=== PATIENT | male | born 1945 | race African-American/Black ===

== ENCOUNTER 2017-06-05 08:51 | Emergency (ER) | payer MEDICARE ==
[2017-06-05 09:24] LABS: #Basophils 0.1 thou/uL (0.0-0.2); #Eosinphils 0.2 thou/uL (0.0-0.7); #Lymphocytes 1.6 thou/uL (1.20-3.40); #Monocytes 0.5 thou/uL (0.11-0.59); #Neutrophils 4.6 thou/uL (1.40-6.50); %Basophils 0.8 % (0.0-1.0); %Eosinophils 3.3 % (0.0-10.0); %Lymphocytes 22.7 % (21.0-51.0); %Monocytes 7.6 % (0.0-10.0); Hematocrit 40.9 % (42.0-52.0); Mean Platelet Volume 9.3 fL (7.4-10.4); Red Blood Cell (RBC) Count 4.94 mill/uL (4.70-6.10)
[2017-06-05 09:46] LABS: ALT (SGPT) 11 U/L (8-55); AST (SGOT) 18 U/L (5-34); Alkaline Phosphatase 107 U/L (40-150); Anion Gap 13 mmol/L (10-20); BUN (Urea Nitrogen) 19 mg/dL (8.4-25.7); Bilirubin, Total 0.5 mg/dL (0.2-1.2); Calc. Creatinine Clearance 0 mL/min (70-130); Calcium 9.7 mg/dL (7.8-10.44); Carbon Dioxide 25 mmol/L (23-31); Chloride 104 mmol/L (98-107); Estimated GFR-MDRD 88; Globulin 3.2 g/dL (2.4-3.5)
[2017-06-05 09:47] LABS: Acetaminophen Less than 6.0 mcg/mL (10.0-30.0); Salicylate Less than 8.0 mg/dL (15.0-30.0)
[2017-06-05 11:48] LABS: Bilirubin Negative (Negative); Blood, Urine Negative (Negative); Glucose, Urine (Dipstick) Negative (Negative); Ketone, Urine Negative (Negative); Nitrite Negative (Negative); Protein, Urine (Dipstick) Negative (Neg-Trace)
[2017-06-05 11:55] LABS: Bacteria/HPF None Seen HPF (None Seen); Hyaline Casts/LPF 0-3 HYALINE CAST LPF (0-3 Hyaline); Squamous Epithelial 0-3 HPF (0-3); WBC/HPF 0-3 HPF (0-3)
[2017-06-05 12:00] LABS: Amphetamine Not Detected (NotDetected); Methadone Not Detected (NotDetected); Methamphetamine Not Detected (NotDetected)
== END 2017-06-05 14:23 | disposition home or self-care (01) ==
LOC: ERS 08:51
DX: F43.20 Adjustment disorder, unspecified (principal); G30.8 Other Alzheimer's disease; F02.80 Dementia in other diseases classified elsewhere, unspecified severity, without behavioral disturbance, psychotic disturbance, mood disturbance, and anxiety; I10 Essential (primary) hypertension
CPT/HCPCS: 36415; 80053; 80306; 80307; 81003; 81015; 85025; 99285

== ENCOUNTER 2017-09-19 14:38 | Emergency (ER) | payer MEDICARE ==
[2017-09-19 15:35] LABS: #Eosinphils 0.1 thou/uL (0.0-0.7); #Lymphocytes 1.7 thou/uL (1.20-3.40); #Monocytes 1.2 thou/uL (0.11-0.59); #Neutrophils 10.9 thou/uL (1.40-6.50); %Basophils 0.3 % (0.0-1.0); %Eosinophils 0.6 % (0.0-10.0); %Lymphocytes 12.4 % (21.0-51.0); %Monocytes 8.6 % (0.0-10.0); Hematocrit 39.8 % (42.0-52.0); Red Blood Cell (RBC) Count 4.67 mill/uL (4.70-6.10); White Blood Cell (WBC) Count 13.9 thou/uL (4.8-10.8)
[2017-09-19 15:57] LABS: ALT (SGPT) 9 U/L (8-55); AST (SGOT) 16 U/L (5-34); Acetaminophen Less than 6.0 mcg/mL (10.0-30.0); Alkaline Phosphatase 101 U/L (40-150); Anion Gap 15 mmol/L (10-20); BUN (Urea Nitrogen) 33 mg/dL (8.4-25.7); Bilirubin, Total 0.7 mg/dL (0.2-1.2); CK (CPK) 174 U/L (30-200); Calc. Creatinine Clearance 0 mL/min (70-130); Calcium 9.9 mg/dL (7.8-10.44); Carbon Dioxide 26 mmol/L (23-31); Chloride 105 mmol/L (98-107); Estimated GFR-MDRD 49; Globulin 3.2 g/dL (2.4-3.5); Protein, Total 7.1 g/dL (5.8-8.1); Salicylate Less than 8.0 mg/dL (15.0-30.0)
[2017-09-19] MEDS ORDERED: risperiDONE 1 MG TAB ONE (16:31)
== END 2017-09-19 20:02 | disposition home or self-care (01) ==
LOC: ERS 14:38
DX: G30.9 Alzheimer's disease, unspecified (principal); F02.81 Dementia in other diseases classified elsewhere, unspecified severity, with behavioral disturbance; Z79.899 Other long term (current) drug therapy
CPT/HCPCS: 36415; 80053; 80307; 82550; 84443; 85025; 99285

== ENCOUNTER 2018-01-08 07:15 | Emergency (ER) | payer MEDICARE ==
[2018-01-08] MEDS ORDERED: Lidocaine 1% w/Epinephrine 1:100K 20 ML VIAL ONE ×2 (07:39→07:42)
--- NOTE | 2018-01-08 09:08 | CT ---
CT BRAIN: HISTORY: Weakness. Patient with recent fall. Laceration to left eyebrow. FINDINGS: Noncontrast enhanced CT images of the brain are obtained. Brain and bone windows obtained. CT images of the brain demonstrate diffuse cortical atrophy. No evidence of acute intracranial christie s, hemorrhages, strokes, or contusions seen. No evidence of calvarial fracture is seen. IMPRESSION: Normal CT brain. POS: [facility]
--- NOTE | 2018-01-08 09:09 | CT ---
CT CERVICAL SPINE: HISTORY: Fall. Mental status change. FINDINGS: Axial images are obtained with coronal and sagittal reconstructions. CT images cervical spine demonstrate disk space height loss with anterior and posterior osteophytes a t C5-6, C6-7, and C7-T1. No evidence of acute cervical spine fracture is seen. The odontoid is unremarkable. Lateral masses of C1 and C2 are unremarkable. IMPRESSION: No evidence of acute cervical spine fracture is seen. POS: [facility]
== END 2018-01-08 09:34 | disposition home or self-care (01) ==
LOC: ERS 07:15
DX: S01.112A Laceration without foreign body of left eyelid and periocular area, initial encounter (principal); S16.1XXA Strain of muscle, fascia and tendon at neck level, initial encounter; I12.9 Hypertensive chronic kidney disease with stage 1 through stage 4 chronic kidney disease, or unspecified chronic kidney disease; N18.3 Chronic kidney disease, stage 3 (moderate); D64.9 Anemia, unspecified; Z79.899 Other long term (current) drug therapy; W19.XXXA Unspecified fall, initial encounter
CPT/HCPCS: 12011; 70450; 72125; J2001

== ENCOUNTER 2018-04-28 04:44 | Inpatient (IN) | payer MEDICARE ==
[2018-04-28 05:42] LABS: Bilirubin Small (Negative); Blood, Urine Negative (Negative); Clarity CLEAR (Clear); Glucose, Urine (Dipstick) Negative (Negative); Leukocyte Negative (Negative); Nitrite Negative (Negative); Protein, Urine (Dipstick) Trace mg/dL (Neg-Trace); Specific Gravity, Urine 1.025 (1.002-1.036); pH, Urine 5.5 (5.0-9.0)
[2018-04-28 05:50] LABS: #Eosinphils 0.1 thou/uL (0.0-0.7); #Lymphocytes 1.1 thou/uL (1.20-3.40); #Monocytes 0.9 thou/uL (0.11-0.59); #Neutrophils 9.6 thou/uL (1.40-6.50); %Basophils 0.3 % (0.0-1.0); %Eosinophils 0.6 % (0.0-10.0); %Lymphocytes 9.6 % (21.0-51.0); %Monocytes 7.2 % (0.0-10.0); %Neutrophils 82.3 % (42.0-75.0); Hemoglobin 11.4 g/dL (14.0-18.0); Mean Corpuscular HGB CONC 33.5 g/dL (32.0-36.0); Mean Corpuscular Volume 77.5 fL (78.0-98.0); Mean Platelet Volume 7.9 fL (7.4-10.4); Platelet Count 235 thou/uL (130-400); RBC Distribution Width 15.6 % (11.5-14.5); White Blood Cell (WBC) Count 11.7 thou/uL (4.8-10.8)
[2018-04-28] MEDS ORDERED: Acetaminophen 650 MG Suppository ONE (05:53)
[2018-04-28] MEDS ORDERED: Piperacillin/Tazobactam 3.375 GM VIAL ONE (05:53)
[2018-04-28 06:09] LABS: ALT (SGPT) 7 U/L (8-55); AST (SGOT) 13 U/L (5-34); Albumin 3.3 g/dL (3.4-4.8); Alkaline Phosphatase 101 U/L (40-150); Anion Gap 11 mmol/L (10-20); BUN (Urea Nitrogen) 18 mg/dL (8.4-25.7); Bilirubin, Total 0.8 mg/dL (0.2-1.2); Calc. Creatinine Clearance 0 mL/min (70-130); Carbon Dioxide 25 mmol/L (23-31); Chloride 107 mmol/L (98-107); Estimated GFR-MDRD 89; Globulin 2.9 g/dL (2.4-3.5); Glucose 121 mg/dL (83-110); Potassium 3.6 mmol/L (3.5-5.1); Protein, Total 6.2 g/dL (5.8-8.1); Sodium 139 mmol/L (136-145)
[2018-04-28] MEDS ORDERED: Acetaminophen 325 MG TAB PO PRN (07:31)
--- NOTE | 2018-04-28 08:17 | HP ---
DATE OF SERVICE: 04/28/2018. PRIMARY CARE PHYSICIAN: Dr. Henson CHIEF COMPLAINT: Fever. HISTORY OF PRESENT ILLNESS: This is a 72-year-old male with advanced dementia, hypertension, glaucoma, chronic kidney disease stage 3, chronic anemia who presents to the emergency room from [facility] for fever and blood noted in his diaper. No history is obtainable from the patient. In the emergency room nurses are noticing that he is scratching at his groin; however, no active bleeding. They did not visualize any gross blood in the diaper; however, sent for occult blood that was positive. His temperature here on arrival was 100.6. Blood cultures were drawn. The patient received Zosyn 3.375 grams, 650 mg of rectal Tylenol, 1 gram of IV vancomycin and Hospitalist called for admission. All information below based on chart review. ALLERGIES: None stated. MEDICATIONS: From a list provided by the [facility]. 1. Iron 325 mg b.i.d. 2. Norvasc 5 mg b.i.d. 3. Ranitidine 150 mg b.i.d. 4. Aricept 10 mg at bedtime. 5. Risperidone 0.25 mg at bedtime. 6. Toprol-XL 25 mg daily. 7. Latanoprost 1 drop each eye at bedtime. 8. Brimonidine 1 drop both eyes twice daily. 9. Namenda 10 mg b.i.d. PAST MEDICAL HISTORY: Based on chart review, 1. Hypertension. 2. Alzheimer disease, appears, severe. 3. Glaucoma. 4. Weakness. 5. Chronic kidney disease stage 3. 6. Aphasia. 7. Anemia. 8. Gastroesophageal reflux disease. PAST SURGICAL HISTORY: Left knee. SOCIAL HISTORY: The patient lives at [facility], his daughter is listed as his primary decision maker, Sarah Hernandez phone number [phone]. CODE STATUS: Listed as full. REVIEW OF SYSTEMS: Not obtainable. FAMILY HISTORY: Not obtainable. PHYSICAL EXAMINATION: VITAL SIGNS: Blood pressure 147/94, pulse 89, respirations 18, saturations 98% on room air, T-max was 101.8. GENERAL: The patient opens eyes. States his name, able to garbled when asked his name, does not respond to other questions. HEENT: Pupils are equal and round. No scleral icterus. Unable to have patient opened his mouth. NECK: Supple, nontender. LYMPHATICS: No palpable cervical or supraclavicular lymphadenopathy. LUNGS: Clear to auscultation bilateral. No audible wheezing, rhonchi or rales. HEART: Normal S1, S2, regular rate and rhythm, no audible murmurs. ABDOMEN: Soft with present bowel sounds. EXTREMITIES: No clubbing, cyanosis, or edema. SKIN: No visible rashes. He does have some dried bright red blood on his feet. PSYCH: Pt only voices name, unable to adequately assess. LABORATORY DATA: Reviewed today. 1. Urinalysis shows small bilirubin 1.025, otherwise negative. 2. Renal panel 139, 3.6, 107, 25 18, 1.01 121. 3. LFTs are normal. Lactic acid 1.3. 4. CBC: 11.7, 11.4, 34.1, 235 with 82% neutrophils. Chest x-ray by my read shows no acute process, awaiting formal radiology report. CT of the brain by my read, no acute process, awaiting formal report. IMPRESSION: 1. Sepsis, however, with no identified source in a patient at a half-way facility. 2. Reported bloody stool, unknown etiology. 3. Alzheimer dementia, appears advanced in nature. 4. Chronic kidney disease stage 3, stable. 5. Anemia, mild, stable. 6. Gastroesophageal reflux disease. 7. Weakness and aphasia. PLAN: 1. Admission to the hospital. 2. Monitor cultures and continue the Zosyn and vancomycin. 3. Continuing his usual medications with hold parameters on the Norvasc and Toprol XL. 4. IV fluid hydration. 5. We will monitor his white blood cell count and his renal function. Also monitor for bleeding and check hemoglobin, may need GI consult. 6. Diet: As tolerated. 7. Consult Palliative Care consult for assistance with communicating with the patient's daughter, and addressing code status as well for this hospitalization as well as for the future. 8. Deep venous thrombosis prophylaxis with Lovenox. 9. Gastrointestinal prophylaxis not indicated. 10. Code status is full per chart review. 11. Surrogate decision maker is listed as the patient's daughter. 12. The patient is at high risk given age, comorbidities, and current presentation. [facility]
[2018-04-28] MEDS ORDERED: Ondansetron HCl/PF 4 MG/2 ML Vial IVP PRN (08:43)
[2018-04-28] MEDS ORDERED: Ondansetron ODT 4 MG TAB SL PRN (08:43)
[2018-04-28] MEDS: NS 0.9% w/ 20 MEQ KCL 1,000 ML/1,000 ML BAG IV SCH ×2 (09:18→23:07)
[2018-04-28] MEDS: Amlodipine 5 MG TAB PO SCH ×2 (09:19→20:42)
[2018-04-28] MEDS: Famotidine 20 MG TAB PO SCH ×2 (09:19→20:42)
[2018-04-28] MEDS: Enoxaparin Sodium 30 MG/0.3 ML SYRINGE SC SCH (09:31)
--- NOTE | 2018-04-28 09:53 | CT ---
PRELIMINARY REPORT/[facility]/EMERGENTY AFTER-HOURS PROCEDURE CT Head Without Intravenous Contrast EXAM DATE/TIME: 04/28/2018 5:58 AM CLINICAL HISTORY: 72 years old, male; Signs and symptoms; Altered mental status/memory loss; Confusion or disorientatio n; Patient HX: Er 5; Ams/confusion; PT presents via ems, from in, for blood found in brief. PT arrive d to er with fever and noticed blood on hand and around a skin tear on scrotum. TECHNIQUE: Axial computed tomography images of the head/brain without intravenous contrast. COMPARISON: No relevant prior studies available. FINDINGS: Brain: No acute intracerebral abnormality or injury. Moderate frontotemporal and frontoparietal cereb ral atrophy. Ventricles: Normal. No ventriculomegaly. Bones/joints: Normal. No acute fracture. Sinuses: Normal as visualized. No acute sinusitis. Mastoid air cells: Normal as visualized. No mastoid effusion. Soft tissues: Normal. IMPRESSION: 1. No acute intracerebral abnormality or injury. 2. Moderate frontotemporal and frontoparietal cerebral atrophy. Thank you for allowing us to participate in the care of your patient. Dictated and Authenticated by: Dieudonne Pisano MD 04/28/2018 7:27 AM Central Time ([place] & [place]) HEAD CT WITHOUT CONTRAST: HISTORY: Altered mental status. COMPARISON: 01/08/2018 FINDINGS: This report is in agreement with the preliminary report by [facility]. No acute intracranial process. There is frontotemporal and frontoparietal atrophy, similar to the pr evious examination. POS: [facility]
--- NOTE | 2018-04-28 10:15 | RAD ---
RADIOGRAPH CHEST 1 VIEW: Supine HISTORY: 72-year-old male with fever. FINDINGS: There is no air space density or pulmonary edema. The lateral costophrenic angles are sharp. Supine positioning makes this study insensitive for pneumothorax detection. Ectasia of thoracic aorta. No ca rdiomegaly. IMPRESSION: 1. No acute cardiopulmonary findings. 2. Ectasia of thoracic aorta. maura [] POS: [facility]
[2018-04-28 11:04] VITALS: BMI 21.3
[2018-04-28] MEDS: Piperacillin/Tazobactam 3.375 GM in Sodium Chloride 0.9% 100 ML IVPB SCH ×2 (12:15→17:12)
[2018-04-28] MEDS ORDERED: Prevnar 13-Val Conj/PF 0.5 ML SYRINGE IM ONE (13:30)
[2018-04-28] MEDS: Brimonidine Tartrate 0.2% Ophth Soln 5 ml Bottle R EYE SCH ×2 (13:59→20:55)
[2018-04-28] MEDS: Brimonidine Tartrate 0.2% Ophth Soln 5 ml Bottle L EYE SCH ×2 (13:59→20:55)
--- NOTE | 2018-04-28 18:14 | PDOC.EVN ---
Event Note - Event Note Event Note: Rn reports only changing brief once today. Pt evaluated by speech and cleared for regular diet - will order this. Discussed with nurse continuing the IVF, adding a small bolus, and encouraging PO intake tonight.
[2018-04-28] MEDS ORDERED: Sodium Chloride 0.9% 500 ML IV SCH (18:15)
[2018-04-28] MEDS: Vancomycin HCl 1 GM in Premix Bag 1 BAG IVPB SCH (18:33)
[2018-04-28] MEDS: risperiDONE 0.25 MG TAB PO SCH (20:42)
[2018-04-28] MEDS: Donepezil HCl 10 MG TAB PO SCH (20:42)
[2018-04-28] MEDS: Latanoprost 0.005% Ophth Soln 2.5 ml Bottle EA EYE SCH (21:01)
[2018-04-29] MEDS: Piperacillin/Tazobactam 3.375 GM in Sodium Chloride 0.9% 100 ML IVPB SCH ×4 (00:40→18:36)
[2018-04-29] MEDS: NS 0.9% w/ 20 MEQ KCL 1,000 ML/1,000 ML BAG IV SCH (04:09)
[2018-04-29 04:55] LABS: #Eosinphils 0.5 thou/uL (0.0-0.7); #Lymphocytes 1.8 thou/uL (1.20-3.40); #Monocytes 0.7 thou/uL (0.11-0.59); #Neutrophils 4.6 thou/uL (1.40-6.50); %Basophils 0.6 % (0.0-1.0); %Eosinophils 6.4 % (0.0-10.0); %Monocytes 9.1 % (0.0-10.0); %Neutrophils 59.9 % (42.0-75.0); Hemoglobin 9.3 g/dL (14.0-18.0); Mean Corpuscular HGB CONC 33.5 g/dL (32.0-36.0); Mean Corpuscular Hemoglobin 26.4 pg (27.0-31.0); Mean Corpuscular Volume 78.8 fL (78.0-98.0); Mean Platelet Volume 7.7 fL (7.4-10.4); Platelet Count 202 thou/uL (130-400); RBC Distribution Width 15.3 % (11.5-14.5); Red Blood Cell (RBC) Count 3.52 mill/uL (4.70-6.10); White Blood Cell (WBC) Count 7.7 thou/uL (4.8-10.8)
[2018-04-29 05:16] LABS: Anion Gap 11 mmol/L (10-20); BUN (Urea Nitrogen) 18 mg/dL (8.4-25.7); Calc. Creatinine Clearance 60 mL/min (70-130); Calcium 8.4 mg/dL (7.8-10.44); Carbon Dioxide 23 mmol/L (23-31); Chloride 109 mmol/L (98-107); Estimated GFR-MDRD 77; Glucose 96 mg/dL (83-110); Potassium 3.8 mmol/L (3.5-5.1); Sodium 139 mmol/L (136-145)
[2018-04-29] MEDS: Vancomycin HCl 1 GM in Premix Bag 1 BAG IVPB SCH ×4 (06:40→20:35)
[2018-04-29] MEDS: Amlodipine 5 MG TAB PO SCH ×2 (09:24→20:51)
[2018-04-29] MEDS: Enoxaparin Sodium 30 MG/0.3 ML SYRINGE SC SCH (09:25)
[2018-04-29] MEDS: Famotidine 20 MG TAB PO SCH (09:25)
[2018-04-29] MEDS: Brimonidine Tartrate 0.2% Ophth Soln 5 ml Bottle L EYE SCH ×2 (09:25→21:06)
[2018-04-29] MEDS: Brimonidine Tartrate 0.2% Ophth Soln 5 ml Bottle R EYE SCH ×2 (09:25→21:06)
[2018-04-29 12:43] LABS: Hemoglobin 8.9 g/dL (14.0-18.0)
--- NOTE | 2018-04-29 15:03 | PDOC.PN ---
- Subjective Encounter Start Date: 04/29/18 (f/u fever) Encounter Start Time: 15:01 Subjective: pt talkative, without complaints, eating without difficulty and -: voiding in bedside commode. Dark brown stool noted just -: now - no bright red blood. - Objective Resuscitation Status: Resuscitation Status FULL:Full Resuscitation Vital Signs & Weight: Vital Signs (12 hours) Temp Pulse Resp BP BP BP Pulse Ox 04/29/18 11:57 98.3 F 68 16 125/67 98 04/29/18 09:24 74 131/83 04/29/18 08:00 97.8 F 74 18 131/83 96 04/29/18 04:50 97.9 F 63 16 138/89 98 I&O: 04/28/18 04/29/18 04/30/18 06:59 06:59 06:59 Intake Total 1700 Balance 1700 Result Diagrams: 04/29/18 12:19 04/29/18 04:30 Phys Exam - Physical Examination Constitutional: NAD oriented to person only Respiratory: no wheezing, no rales, no rhonchi Cardiovascular: RRR, no significant murmur Gastrointestinal: soft, non-tender, no distention, positive bowel sounds Musculoskeletal: no edema Neurological: non-focal, moves all 4 limbs Deviation from normal: oriented to person only, Skin: no rash Dx/Plan (1) Sepsis Code(s): A41.9 - SEPSIS, UNSPECIFIED ORGANISM Status: Acute Qualifiers: Sepsis type: sepsis due to unspecified organism Qualified Code(s): A41.9 - Sepsis, unspecified organism (2) Alzheimer's dementia Code(s): G30.9 - ALZHEIMER'S DISEASE, UNSPECIFIED; F02.80 - DEMENTIA IN OTH DISEASES CLASSD ELSWHR W/O BEHAVRL DISTURB Status: Chronic Qualifiers: Alzheimer's disease onset: unspecified onset (3) CKD (chronic kidney disease) Code(s): N18.9 - CHRONIC KIDNEY DISEASE, UNSPECIFIED Status: Chronic Qualifiers: Chronic kidney disease stage: stage 3 (moderate) Qualified Code(s): N18.3 - Chronic kidney disease, stage 3 (moderate) (4) Anemia Code(s): D64.9 - ANEMIA, UNSPECIFIED Status: Chronic Qualifiers: Anemia type: unspecified type Qualified Code(s): D64.9 - Anemia, unspecified (5) Blood in stool Code(s): K92.1 - MELENA Status: Acute (6) GERD (gastroesophageal reflux disease) Code(s): K21.9 - GASTRO-ESOPHAGEAL REFLUX DISEASE WITHOUT ESOPHAGITIS Status: Chronic Qualifiers: Esophagitis presence: esophagitis presence not specified Qualified Code(s) : K21.9 - Gastro-esophageal reflux disease without esophagitis (7) Weakness Code(s): R53.1 - WEAKNESS Status: Acute - Plan * Sepsis - no focal source of infection - continue zosyn and vancomycin until cultures are 48-72 hours. No fevers noted since admission * Blood in stool - per detention - no gross blood visualized here. Given the decline in hemoglobin this morning, will consult GI for evaluation. Of note , pt did receive one dose of lovenox for dvt prophylaxis this morning - this has been stopped. Recheck hemoglobin in 4 hours, has a type and screen - at this time there is no indication for transfusion. * BP well controlled on home meds * dementia - oriented to person today and talking - improved. * * dvt prophy - scd's * gi prophy - on famotidine at detention - continue here * code status full per detention record. * * reviewed plan of care with RN this morning.
[2018-04-29 19:04] LABS: #Basophils 0.1 thou/uL (0.0-0.2); #Eosinphils 0.6 thou/uL (0.0-0.7); #Lymphocytes 1.9 thou/uL (1.20-3.40); #Monocytes 0.7 thou/uL (0.11-0.59); #Neutrophils 5.1 thou/uL (1.40-6.50); %Basophils 0.7 % (0.0-1.0); %Eosinophils 6.9 % (0.0-10.0); %Lymphocytes 22.6 % (21.0-51.0); %Monocytes 8.1 % (0.0-10.0); %Neutrophils 61.7 % (42.0-75.0); Mean Corpuscular HGB CONC 31.9 g/dL (32.0-36.0); Mean Corpuscular Hemoglobin 25.7 pg (27.0-31.0); Mean Corpuscular Volume 80.4 fL (78.0-98.0); Mean Platelet Volume 8.1 fL (7.4-10.4); Platelet Count 238 thou/uL (130-400); RBC Distribution Width 15.4 % (11.5-14.5); Red Blood Cell (RBC) Count 4.29 mill/uL (4.70-6.10); White Blood Cell (WBC) Count 8.3 thou/uL (4.8-10.8)
[2018-04-29] MEDS: Latanoprost 0.005% Ophth Soln 2.5 ml Bottle EA EYE SCH (20:39)
[2018-04-29] MEDS: risperiDONE 0.25 MG TAB PO SCH (20:51)
[2018-04-29] MEDS: Donepezil HCl 10 MG TAB PO SCH (20:51)
--- NOTE | 2018-04-29 21:42 | CON ---
DATE OF CONSULTATION: 04/29/2018 REASON FOR CONSULTATION: Anemia. CONSULTING PHYSICIAN: Rebeca Fitzgerald MD. HISTORY OF PRESENT ILLNESS: The patient is a 72-year-old male with past medical history of hypertens ion, glaucoma, chronic kidney disease stage 3, aphasia, GERD, Alzheimer disease, and anemia, who init ially presented to the hospital for fever and hematochezia. All the information obtained was through the chart review and discussion with both nursing staff and the hospitalist. Apparently, the patien t was transferred from [facility] with complaints of fever of unknown origin as well as t he spotting of bright red blood per rectum that was noted in his diaper prior to admission. Last nig ht, the patient had a darker colored stool of unknown consistency, which then translated into more da rk brown semi-solid stool today. No gross blood/hematochezia, overt melena, or hematemesis has been visualized during this hospitalization. He is currently receiving IV fluids as well as IV antibiotic s for treatment of fever of unknown origin. Due to his severe Alzheimer disease, the patient is unab le to contribute a meaningful response to his current clinical status. REVIEW OF SYSTEMS: Could not be obtained due to the severe Alzheimer dementia. PAST MEDICAL HISTORY: As per HPI. PAST SURGICAL HISTORY: Left knee surgery. FAMILY HISTORY: Could not obtain due to lack of family present and the patient's severe Alzheimer di sease. SOCIAL HISTORY: Currently lives in a [facility] with no stated alcohol, tobacco, or illicit drug u se per chart. OUTPATIENT MEDICATIONS: Reviewed. ALLERGIES: No known drug allergies. PHYSICAL EXAMINATION: VITAL SIGNS: Temperature 98.3, pulse 68, blood pressure 125/67, respiratory rate 16, satting 98% on room air. GENERAL: The patient is lying in bed, in no acute distress, alert and oriented x1. Displays signifi cant tangential thought processes. NECK: Supple. No JVD noted. CARDIOVASCULAR: Regular rate and rhythm with no discernible murmurs, gallops, or rubs. RESPIRATORY: Clear to auscultation bilaterally with no discernible wheezes or rales. ABDOMEN: Normoactive bowel sounds, soft, nontender, nondistended. EXTREMITIES: No cyanosis, clubbing, or edema. LABORATORY DATA: CBC with a white blood cell count of 7.7, hemoglobin 8.9, hematocrit 26.9, platelet s 202. Chemistry with a sodium of 139, potassium 3.8, chloride 109, CO2 of 23, BUN 18, creatinine 1. 13, glucose 96, AST 13, ALT 7, alkaline phosphatase 101, total bilirubin 0.8, albumin 3.3. IMAGING DATA: No current GI imaging is available for review. ASSESSMENT AND PLAN: The patient is a 72-year-old -[place] male with past medical history of hypertension, glaucoma, chronic kidney disease stage 3, aphasia, gastroesophageal reflux disease, Al zheimer disease, and chronic anemia presenting with worsening of his anemia. Anemia: The patient was initially admitted to the hospital for workup related to fever of unknown or igin; however, during interview with the nursing staff at the [facility], they did mention the poss ibility of small amounts of hematochezia per the patient's diaper. During this admission, he has bee n noted to have a darker-colored stool last night as well as dark brown semi-solid stool today, but n o complaints of overt hematochezia, melena, or hematemesis. Upon review of his labs, his H&H dropped approximately 2 units of blood within a 24-hour time period, again with no evidence of overt GI blee ding; however, he does have a low MCV and a high RDW, which is concerning for possible iron deficienc y anemia. At this time, I would like to further characterize his anemia by drawing iron indices on h im to determine whether or not this is an iron deficiency anemia versus anemia of chronic/renal disea se that may be contributing to the current clinical picture. Also, within the differential is hemodi lutional anemia from administration of IV fluids as well as IV antibiotics, which is evident by his d ecrease in white blood cell count, hemoglobin, hematocrit and platelets. However, differential could still include esophagitis, gastritis, peptic ulcer disease, GI malignancy, hemorrhoidal bleeding, di verticular bleeding (much less likely), colonic neoplasm, and anemia of non-GI origin. RECOMMENDATIONS: 1. We will obtain iron indices to further characterize his anemia. 2. We would continue to trend H&H and transfuse as necessary to maintain an H&H of 04/15. 3. We would continue to monitor for signs of active gastrointestinal bleeding. 4. If the patient does indeed have an iron deficiency anemia or indices indicative thereof, would re commend both an upper and lower endoscopy for evaluation of possible bleeding source. 5. If the patient's H&H continues to decrease, given the observed darker-colored stools, an EGD may be warranted as well, but will hold off on that until iron indices are back. We will continue to follow. Please call with any questions.
[2018-04-30 00:49] LABS: #Basophils 0.1 thou/uL (0.0-0.2); #Eosinphils 0.6 thou/uL (0.0-0.7); #Lymphocytes 1.3 thou/uL (1.20-3.40); #Monocytes 0.8 thou/uL (0.11-0.59); #Neutrophils 4.5 thou/uL (1.40-6.50); %Basophils 0.9 % (0.0-1.0); %Eosinophils 8.7 % (0.0-10.0); %Lymphocytes 18.2 % (21.0-51.0); %Monocytes 10.4 % (0.0-10.0); %Neutrophils 61.7 % (42.0-75.0); Hemoglobin 9.2 g/dL (14.0-18.0); Mean Corpuscular HGB CONC 34.1 g/dL (32.0-36.0); Mean Corpuscular Hemoglobin 26.8 pg (27.0-31.0); Mean Corpuscular Volume 78.8 fL (78.0-98.0); Mean Platelet Volume 7.9 fL (7.4-10.4); Platelet Count 233 thou/uL (130-400); RBC Distribution Width 15.3 % (11.5-14.5); Red Blood Cell (RBC) Count 3.43 mill/uL (4.70-6.10); White Blood Cell (WBC) Count 7.3 thou/uL (4.8-10.8)
[2018-04-30] MEDS: Piperacillin/Tazobactam 3.375 GM in Sodium Chloride 0.9% 100 ML IVPB SCH ×4 (01:01→17:29)
[2018-04-30 04:54] LABS: #Eosinphils 0.7 thou/uL (0.0-0.7); #Lymphocytes 1.9 thou/uL (1.20-3.40); #Monocytes 0.8 thou/uL (0.11-0.59); #Neutrophils 4.9 thou/uL (1.40-6.50); %Basophils 0.4 % (0.0-1.0); %Eosinophils 8.5 % (0.0-10.0); %Lymphocytes 22.7 % (21.0-51.0); %Monocytes 9.7 % (0.0-10.0); %Neutrophils 58.6 % (42.0-75.0); Hemoglobin 10.4 g/dL (14.0-18.0); Mean Corpuscular HGB CONC 33.4 g/dL (32.0-36.0); Mean Corpuscular Hemoglobin 26.3 pg (27.0-31.0); Mean Corpuscular Volume 78.6 fL (78.0-98.0); Mean Platelet Volume 7.7 fL (7.4-10.4); Platelet Count 254 thou/uL (130-400); RBC Distribution Width 15.3 % (11.5-14.5); Red Blood Cell (RBC) Count 3.95 mill/uL (4.70-6.10); White Blood Cell (WBC) Count 8.4 thou/uL (4.8-10.8)
[2018-04-30 04:55] LABS: Reticulocyte Count 2.1 % (0.5-1.5)
[2018-04-30 05:25] LABS: Anion Gap 11 mmol/L (10-20); BUN (Urea Nitrogen) 10 mg/dL (8.4-25.7); Calc. Creatinine Clearance 66 mL/min (70-130); Calcium 9.1 mg/dL (7.8-10.44); Carbon Dioxide 25 mmol/L (23-31); Chloride 107 mmol/L (98-107); Estimated GFR-MDRD 86; Glucose 97 mg/dL (83-110); Iron 16 ug/dL (65-175); Iron Binding Capacity, Total 205 mcg/dL (261-462); Potassium 3.8 mmol/L (3.5-5.1); Sodium 139 mmol/L (136-145)
[2018-04-30 05:28] LABS: Iron 16 ug/dL (65-175); Iron Binding Capacity, Total 203 mcg/dL (261-462)
[2018-04-30] MEDS: Brimonidine Tartrate 0.2% Ophth Soln 5 ml Bottle L EYE SCH ×2 (07:55→21:15)
[2018-04-30] MEDS: Amlodipine 5 MG TAB PO SCH ×2 (07:56→21:14)
[2018-04-30] MEDS: Vancomycin HCl 1 GM in Premix Bag 1 BAG IVPB SCH (07:57)
[2018-04-30] MEDS: Latanoprost 0.005% Ophth Soln 2.5 ml Bottle EA EYE SCH ×2 (07:58→21:19)
[2018-04-30] MEDS: Brimonidine Tartrate 0.2% Ophth Soln 5 ml Bottle R EYE SCH ×2 (09:00→21:15)
--- NOTE | 2018-04-30 13:57 | PRG ---
DATE OF SERVICE: 04/30/2018 REASON FOR CONSULTATION: Anemia. SUBJECTIVE: Per nursing staff, there were no acute events or problems overnight. The patient did no t have any episodes of hematemesis, melena or hematochezia. He has had approximately 2 bowel movemen ts during his inpatient stay that have been semi-solid in nature, but no observed bleeding. Upon dipesh bill with the patient today, he continues to be tangential with thought process and could not contrib [place] meaningful responses to the conversation. OBJECTIVE: VITAL SIGNS: Temperature 98.6, pulse 81, blood pressure 154/90, respiratory rate 16, satting 98% on room air. GENERAL: The patient was lying in bed in no acute distress, alert and oriented x1. CARDIOVASCULAR: Regular rate and rhythm. RESPIRATORY: Clear to auscultation bilaterally. ABDOMEN: Normoactive bowel sounds, soft, nontender, nondistended. EXTREMITIES: No cyanosis, clubbing or edema. LABORATORY DATA: CBC with a white blood cell count of 8.4, hemoglobin 10.4, hematocrit 31, platelets 254. Chemistry with sodium of 139, potassium 3.8, chloride 107, CO2 25, BUN 10, creatinine 1.03, gl ucose 97, iron 16, ferritin 103, TIBC 203. Reticulocyte count 2.1%. IMAGING DATA: No current GI imaging is available for review. ASSESSMENT AND PLAN: The patient is a 72-year-old -[place] male with past medical history of hypertension, glaucoma, chronic kidney disease stage 3, aphasia, gastroesophageal reflux disease, Al zheimer's disease, and chronic anemia presenting with worsening of his anemia. ANEMIA: The patient was initially admitted to the hospital for workup related to fever of unknown or igin, but was seen to have mild anemia on admission. During the course of his admission, his hemoglo bin and hematocrit dropped precipitously approximately 2 units of blood with 24-hour time period with out any evidence of overt gastrointestinal bleeding. Per nursing staff, he has not had any episodes of hematemesis, melena or hematochezia that might contributed to this precipitous drop; however, repe at of his hemoglobin and hematocrit this morning shows a significant increase in his hemoglobin and h ematocrit almost back to baseline, raising the question to whether or not he had this sudden decrease in his blood to begin with. Further evaluation with iron indices and CBC indices show a low MCV, hi gh RDW, low iron, normal ferritin and a low TIBC more consistent with anemia of chronic disease/renal disease. At this time given the patient's advanced dementia and lack of evidence of either acute or chronic gastrointestinal bleeding, I would hold off on any endoscopic management at this time. RECOMMENDATIONS: 1. We would continue to trend hemoglobin and hematocrit and transfuse as necessary to maintain hemog lobin and hematocrit of 7/21. 2. We would continue to monitor clinically for signs of active gastrointestinal bleeding. 3. If the patient does have continued decrease in his hemoglobin and hematocrit or has stooling amadou marion consistent more with melena, I would consider an upper endoscopy for further evaluation. We will continue to follow. Please call with any questions.
--- NOTE | 2018-04-30 14:02 | PDOC.PN ---
- Subjective Encounter Start Date: 04/30/18 (f/u fever) Encounter Start Time: 14:01 Subjective: No fevers in the hospital, no overt blood in the stool. -: Pt voiding without difficulty- is up and wobbly - currently sitting with -: the staff at the nurses station - Objective Resuscitation Status: Resuscitation Status FULL:Full Resuscitation Vital Signs & Weight: Vital Signs (12 hours) Temp Pulse Resp BP BP Pulse Ox 04/30/18 11:29 98.6 F 81 16 154/90 H 98 04/30/18 08:00 98.0 F 97 18 97 04/30/18 07:56 97 148/98 H 04/30/18 07:53 98.0 F 97 18 148/98 H 94 L 04/30/18 04:00 98.0 F 70 16 168/91 H 98 I&O: 04/29/18 04/30/18 05/01/18 06:59 06:59 06:59 Intake Total 1700 660 Balance 1700 660 Result Diagrams: 04/30/18 04:33 04/30/18 04:33 Additional Labs: Accuchecks 04/29/18 16:55 POC Glucose 93 Phys Exam - Physical Examination Constitutional: NAD oriented to person only Respiratory: no wheezing, no rales, no rhonchi Cardiovascular: RRR, no significant murmur Gastrointestinal: soft, non-tender, no distention, positive bowel sounds Musculoskeletal: no edema Neurological: non-focal Psychiatric: normal affect Skin: no rash Dx/Plan (1) Sepsis Code(s): A41.9 - SEPSIS, UNSPECIFIED ORGANISM Status: Acute Qualifiers: Sepsis type: sepsis due to unspecified organism Qualified Code(s): A41.9 - Sepsis, unspecified organism (2) Alzheimer's dementia Code(s): G30.9 - ALZHEIMER'S DISEASE, UNSPECIFIED; F02.80 - DEMENTIA IN OTH DISEASES CLASSD ELSWHR W/O BEHAVRL DISTURB Status: Chronic Qualifiers: Alzheimer's disease onset: unspecified onset (3) CKD (chronic kidney disease) Code(s): N18.9 - CHRONIC KIDNEY DISEASE, UNSPECIFIED Status: Chronic Qualifiers: Chronic kidney disease stage: stage 3 (moderate) Qualified Code(s): N18.3 - Chronic kidney disease, stage 3 (moderate) (4) Anemia Code(s): D64.9 - ANEMIA, UNSPECIFIED Status: Chronic Qualifiers: Anemia type: unspecified type Qualified Code(s): D64.9 - Anemia, unspecified (5) Blood in stool Code(s): K92.1 - MELENA Status: Acute (6) GERD (gastroesophageal reflux disease) Code(s): K21.9 - GASTRO-ESOPHAGEAL REFLUX DISEASE WITHOUT ESOPHAGITIS Status: Chronic Qualifiers: Esophagitis presence: esophagitis presence not specified Qualified Code(s) : K21.9 - Gastro-esophageal reflux disease without esophagitis (7) Weakness Code(s): R53.1 - WEAKNESS Status: Acute - Plan * Sepsis - cultures negative, will d/c vancomycin and zosyn as no fevers here and pt overall doing well. Recheck cx tomorrow. * * Blood in stool - decline in hemoglobin c/w dilution, no overt bleeding identified. Appreciate GI evaluation, iron studies completed and normal ferritin, low iron c/w anemia of chronic disease. No indication for endoscopy at this time. Will recheck cbc in am. * * ckd stable * * BP controlled on home meds * dementia - oriented to person - likely baseline * * dvt prophy - scd's * gi prophy - not indicated. * code status full per custodial record. * * reviewed plan of care with RN, on questions or further needs at end of eval. Anticipate discharge to his nursing facility tomorrow.
[2018-04-30] MEDS: Donepezil HCl 10 MG TAB PO SCH (21:14)
[2018-04-30] MEDS: risperiDONE 0.25 MG TAB PO SCH (21:15)
[2018-05-01 05:12] LABS: #Basophils 0.1 thou/uL (0.0-0.2); #Eosinphils 0.6 thou/uL (0.0-0.7); #Lymphocytes 1.7 thou/uL (1.20-3.40); #Monocytes 0.8 thou/uL (0.11-0.59); #Neutrophils 4.5 thou/uL (1.40-6.50); %Basophils 0.7 % (0.0-1.0); %Eosinophils 7.9 % (0.0-10.0); %Lymphocytes 22.7 % (21.0-51.0); %Monocytes 10.6 % (0.0-10.0); %Neutrophils 58.2 % (42.0-75.0); Hemoglobin 9.7 g/dL (14.0-18.0); Mean Corpuscular HGB CONC 33.8 g/dL (32.0-36.0); Mean Corpuscular Hemoglobin 26.5 pg (27.0-31.0); Mean Corpuscular Volume 78.3 fL (78.0-98.0); Mean Platelet Volume 7.8 fL (7.4-10.4); Platelet Count 261 thou/uL (130-400); RBC Distribution Width 15.1 % (11.5-14.5); Red Blood Cell (RBC) Count 3.67 mill/uL (4.70-6.10); White Blood Cell (WBC) Count 7.6 thou/uL (4.8-10.8)
[2018-05-01 05:30] LABS: Anion Gap 14 mmol/L (10-20); BUN (Urea Nitrogen) 12 mg/dL (8.4-25.7); Calc. Creatinine Clearance 58 mL/min (70-130); Calcium 8.7 mg/dL (7.8-10.44); Carbon Dioxide 21 mmol/L (23-31); Chloride 106 mmol/L (98-107); Estimated GFR-MDRD 74; Glucose 83 mg/dL (83-110); Potassium 3.7 mmol/L (3.5-5.1); Sodium 137 mmol/L (136-145)
[2018-05-01] MEDS: Amlodipine 5 MG TAB PO SCH (09:06)
[2018-05-01] MEDS: Brimonidine Tartrate 0.2% Ophth Soln 5 ml Bottle R EYE SCH (09:06)
[2018-05-01] MEDS: Brimonidine Tartrate 0.2% Ophth Soln 5 ml Bottle L EYE SCH (09:06)
--- NOTE | 2018-05-01 11:15 | DIS ---
PRIMARY CARE PHYSICIAN: Listed as Dr. Boone Ackerman DATE OF ADMISSION: 04/28/2018 DATE OF DISCHARGE: 05/01/2018 DISCHARGE DIAGNOSES: 1. Rectal bleeding. 2. Sepsis, present on admission, resolved. 3. Anemia, iron deficiency, chronic. 4. Alzheimer dementia. 5. Essential hypertension. CONSULTATIONS: Gastroenterology, Dr. Neal Muro PROCEDURES: None. HISTORY AND PHYSICAL: Mr. Hernandez is a 72-year-old male with history of dementia w ho was transported to the Emergency Department via EMS for fever and rectal bleeding. In the emergen cy department, he was found to have a temperature of 100.6. He was started on Zosyn and vancomycin. We were called for admission. HOSPITAL COURSE: The patient was seen and examined by Dr. Rebeca Fitzgerald. The patient was placed in in patient status and continued on sepsis protocol with IV fluids, antibiotics and was watched. Overnight 04/28/2018 to 04/29/2018 the patient was eating without difficulty and voiding in the [facility]. No bright red blood, some dark brown stool noted. He was continued to be watched. His hemoglobin was trended and GI was consulted. They saw him and recommended no further studies at this time and recommend continuing the Protonix. By 04/30/2018 he continued to do well. He had 3 bowel movements over the course of the day, all brown and without evidence of bleeding and his hemoglobin w as stable. Today, 05/01/2018 hemoglobin is down to 9.7 from 10.4 yesterday was up from 9.2 the day b efore. He has had no signs of bleeding and is hemodynamically stable ready for discharge back to [facility]. PHYSICAL EXAMINATION: The patient was seen and examined on the day of discharge. Discharge plan and disposition was discussed with the patient face to face at the bedside. DISCHARGE MEDICATIONS: NEW MEDICATIONS: Protonix 40 mg p.o. b.i.d. MEDICATIONS TO CONTINUE: 1. Norvasc 5 mg p.o. b.i.d. 2. Alphagan 0.2% 1 drop each eye b.i.d. 3. Aricept 10 mg p.o. at bedtime. 4. Iron sulfate 325 mg p.o. b.i.d. 5. Latanoprost 0.005% 1 drop each eye at bedtime. 6. Memantine 10 mg p.o. b.i.d. 7. Metoprolol succinate 25 mg p.o. daily. 8. Zantac 150 mg p.o. b.i.d. 9. Risperdal M-Tab 0.5 mg p.o. b.i.d. FOLLOWUP APPOINTMENTS: 1. Primary care physician within a week. 2. With Dr. Muro in 2-3 weeks. DISCHARGE CONDITION: Stable. DISPOSITION: He is being discharged back to [facility]. DISCHARGE ACTIVITY: As tolerated. DISCHARGE DIET: Heart healthy recommended.
[2018-05-01 13:30] VITALS: BP 142/84; TEMP 97.5
== END 2018-05-01 17:15 | DRG 872 ==
LOC: ERS 04:44 → T4-B 06:00
PROVIDERS: ADMIT Hospitalist; ATTEND Hospitalist
DX: A41.9 Sepsis, unspecified organism (principal); K62.5 Hemorrhage of anus and rectum; R47.01 Aphasia; D50.9 Iron deficiency anemia, unspecified; I12.9 Hypertensive chronic kidney disease with stage 1 through stage 4 chronic kidney disease, or unspecified chronic kidney disease; N18.3 Chronic kidney disease, stage 3 (moderate); K21.9 Gastro-esophageal reflux disease without esophagitis; R53.1 Weakness
CPT/HCPCS: 36415; 36416; 51701; 70450; 71045; 80048; 80053; 80202; 81003; 82274; 82728; 83540; 83550; 83605; 85025; 85046; 86850; 86900; 86901; 87040; 87086; 93005; 96365; 96367; G8996-GN-CJ; G8997-GN-CJ; J1650; J2543; J3370; J7050

== ENCOUNTER 2018-07-06 11:17 | Emergency (ER) | payer MEDICARE ==
[2018-07-06 12:34] LABS: #Eosinphils 0.2 thou/uL (0.0-0.7); #Lymphocytes 0.8 thou/uL (1.20-3.40); #Monocytes 1.1 thou/uL (0.11-0.59); %Basophils 0.2 % (0.0-1.0); %Eosinophils 1.9 % (0.0-10.0); %Monocytes 9.7 % (0.0-10.0); %Neutrophils 81.2 % (42.0-75.0); Hemoglobin 10.4 g/dL (14.0-18.0); Mean Corpuscular HGB CONC 30.8 g/dL (32.0-36.0); Mean Corpuscular Hemoglobin 22.9 pg (27.0-31.0); Mean Corpuscular Volume 74.2 fL (78.0-98.0); Mean Platelet Volume 8.7 fL (7.4-10.4); Platelet Count 277 thou/uL (130-400); RBC Distribution Width 15.6 % (11.5-14.5); Red Blood Cell (RBC) Count 4.56 mill/uL (4.70-6.10); White Blood Cell (WBC) Count 11.1 thou/uL (4.8-10.8)
[2018-07-06 12:50] LABS: Anisocytosis SLIGHT = 6-15 cells (100X) (0-5/hpf); Hypochromia SLIGHT = 6-15 cells (100X) (0-5/hpf); MDiff Complete? YES; Microcytosis SLIGHT = 6-15 cells (100X) (0-5/hpf); Ovalocytes SLIGHT = 2-5 cells (100X) (0-1/hpf); PLT Morphology Comment Appears Adequate; Polychromasia SLIGHT = 2-3 cells (100X) (0-2/hpf); Target Cells SLIGHT = 2-5 cells (100X) (0-1/hpf)
[2018-07-06 13:01] LABS: ALT (SGPT) 7 U/L (8-55); AST (SGOT) 26 U/L (5-34); Albumin 3.1 g/dL (3.4-4.8); Alkaline Phosphatase 96 U/L (40-150); Anion Gap 16 mmol/L (10-20); BUN (Urea Nitrogen) 16 mg/dL (8.4-25.7); Bilirubin, Total 0.6 mg/dL (0.2-1.2); Calc. Creatinine Clearance 0 mL/min (70-130); Calcium 9.3 mg/dL (7.8-10.44); Carbon Dioxide 23 mmol/L (23-31); Chloride 107 mmol/L (98-107); Estimated GFR-MDRD 90; Globulin 3.6 g/dL (2.4-3.5); Glucose 111 mg/dL (83-110); Potassium 3.8 mmol/L (3.5-5.1); Protein, Total 6.7 g/dL (5.8-8.1); Sodium 142 mmol/L (136-145)
--- NOTE | 2018-07-06 13:43 | CT ---
CT HEAD NONCONTRAST: History: Fall. Head injury. Comparison: 04-28-18 FINDINGS: There is no evidence of acute intracranial hemorrhage or infarct. Motion artifact obscures detail. Ve ntricles are unremarkable. No mass effect or shift of midline structures. Visualized paranasal sinuse s remain well aerated. IMPRESSION: Chronic type findings. No acute intracranial abnormalities are demonstrated. POS: [facility]
--- NOTE | 2018-07-06 13:46 | CT ---
CT CERVICAL SPINE NONCONTRAST: History: Fall. Neck injury. Comparison: 01-08-18 FINDINGS: Severe degenerative changes are again demonstrated. Multilevel disc space narrowing, discogenic endpl ate changes, and prominent osteophytosis. Multilevel mild spondylolistheses are stable. No acute frac ture or dislocation. IMPRESSION: Prominent degenerative changes. No acute osseous abnormalities are demonstrated. POS: [facility]
--- NOTE | 2018-07-06 15:04 | CT ---
CT CHEST WITH IV CONTRAST CT ABDOMEN AND PELVIS WITH IV CONTRAST CT THORACIC SPINE NONCONTRAST CT LUMBAR SPINE NONCONTRAST: HISTORY: Fall. Chest and abdomen injury. Back injury. FINDINGS: No evidence of pneumothorax or mediastinal hematoma. Right posterior lower rib fractures are favored to be old. Calcification throughout the arterial structures. Multiple heterogeneous low-density masses throughout the liver are apparent, involving each lobe. Th e largest is a lobular low-density mass within the medial segment left lobe that measures up to 6.6 c m depth. Cysts arise from the cortex of each kidney. At the anterior cortex of the left kidney is a focal mass-like low-density area measuring up to 2.1 cm. No free air or free fluid. Gallbladder is surgically absent. Prominent degenerative changes lumbar spine. Calcification throughout the arter ial structures. Lack of oral contrast limits evaluation of the bowel. AT the level of the upper rectum, circumferent ial mass-like wall thickening measures up to 3.7 cm greatest oblique diameter on the axial images. Mild multilevel chronic compressions throughout the thoracolumbar spine without acute compression fra cture apparent. Alignment is anatomic allowing for S-shaped curvature on the frontal views. Osteoph ytosis throughout the vertebral bodies and facets. IMPRESSION: 1. Metastatic disease of the liver, possibly from probable rectal mass. 2. Heterogeneous mass of the left kidney has the appearance of a renal cell carcinoma. 3. No acute traumatic injury is reliably demonstrated. 4. Atherosclerosis. POS: [facility]
== END 2018-07-06 17:21 | disposition home or self-care (01) ==
LOC: ERS 11:17
DX: Z04.3 Encounter for examination and observation following other accident (principal); C18.9 Malignant neoplasm of colon, unspecified; I12.9 Hypertensive chronic kidney disease with stage 1 through stage 4 chronic kidney disease, or unspecified chronic kidney disease; N18.3 Chronic kidney disease, stage 3 (moderate); K21.9 Gastro-esophageal reflux disease without esophagitis; D64.9 Anemia, unspecified; Z79.899 Other long term (current) drug therapy
CPT/HCPCS: 36415; 70450; 71260; 72125; 74177; 80053; 85025